=== PATIENT | female | born 1945 | race Caucasian/White ===

== ENCOUNTER → 2016-08-12 | Outpatient (CLI) | payer MEDICARE ==
[2016-08-12 11:18] LABS: CH 30.7; CHCM 33.4; HCT 41.6 % (34.0-46.0); HDW 2.73; HGB 13.6 gm/dL (11.4-16.0); MCH 30.2 pg (25.0-35.0); MCHC 32.7 g/dL (31.0-37.0); MCV 92.4 fL (80.0-100.0); RDW 12.9 % (11.5-15.5); WBC 3.2 k/uL (3.8-10.6)
[2016-08-12 11:30] LABS: ALT 35 U/L (9-52); AST 22 U/L (14-36); Alkaline Phosphatase 94 U/L (38-126); Anion Gap 11 mmol/L; Blood Urea Nitrogen 13 mg/dL (7-17); C Reactive Protein <5.0 mg/L (<10.0); Calcium 9.4 mg/dL (8.4-10.2); Carbon Dioxide 27 mmol/L (22-30); Chloride 107 mmol/L (98-107); Glucose 91 mg/dL (74-99); Non-African American GFR(MDRD) >60 (>60 ml/min/1.73 sqM); Potassium 4.2 mmol/L (3.5-5.1); Sodium 145 mmol/L (137-145); Total Bilirubin 0.5 mg/dL (0.2-1.3); Total Protein 6.9 g/dL (6.3-8.2)
--- NOTE | 2016-08-12 11:53 | US ---
EXAMINATION TYPE: US abdomen complete DATE OF EXAM: 08/12/2016 10:48 AM COMPARISON: Previous exam November CLINICAL HISTORY: Intermittent bloating, indigestion and constipation x 2 years, history of cholecyst ectomy, obese patient. EXAM MEASUREMENTS: Liver Length: 14.6cm Gallbladder Wall: surgically absent CBD: 0.7cm Spleen: 11.6cm Right Kidney: 9.7 x 4.8 x 5.0cm Left Kidney: 9.6 x 5.6 x 4.5cm Pancreas: obscured by bowel gas Liver: heterogeneous echotexture, exam is somewhat limited within the liver Gallbladder: surgically absent Evidence for sonographic Manuel's sign: no CBD: visualized portions wnl, limited by overlying bowel gas Spleen: visualized portions wnl, limited by rib shadowing and overlying bowel gas Right Kidney: 1.4 x 1.6 x 1.9cm cystic area lateral inferior pole is essentially stable, lower pole is somewhat obscured Left Kidney: visualized portions wnl, limited by rib shadowing Upper IVC: wnl Abd Aorta: visualized portions wnl, limited by overlying bowel gas The intrahepatic portion of the IVC and proximal abdominal aorta are within normal limits. Common bi le duct is unremarkable. The visualized portions of the pancreas are homogenous. The spleen is unre markable. Kidneys are symmetric and free of hydronephrosis. IMPRESSION: Simple cyst lower pole right kidney. Exam is somewhat limited. Normal Values: Liver Length: < 16cm wnl, 17-18cm upper limits, >18cm enlarged Spleen Length = < 13cm Renal Length = 9 - 12cm GB Wall: < 0.3cm CBD: < 0.6cm or < 1.0cm post cholecystectomy
[2016-08-12 12:57] LABS: Erythrocyte Sedimentation Rate 12 mm/hr (0-20)
== END | disposition home or self-care (01) ==
LOC: RADUSWWP 10:14
DX: N28.1 Cyst of kidney, acquired (principal)
CPT/HCPCS: 36415; 76700; 80053; 85027; 85652; 86140

== ENCOUNTER 2019-10-05 10:34 | Day surgery (SDC) | payer MEDICARE ==
[2019-10-04 09:48] VITALS: BMI 28.3
[~2019-10-05 10:34] MED LIST: LACTATED RINGERS 1,000 ML IV SCH; LIDOCAINE 1% (10MG/ML) FOR IV START INTRADERMA PRN
[2019-10-05 11:05] VITALS: TEMP 97.5
[2019-10-05] MEDS ORDERED: PROPOFOL 10 MG/ML 20 ML VIAL IV ONE (11:14)
--- NOTE | 2019-10-05 11:32 | P.PCN ---
Date of Procedure: 10/05/19 Procedure(s) Performed: BRIEF HISTORY: Patient is a 74-year-old pleasant female scheduled for an elective colonoscopy as a part of evaluation of change in bowel habits and family history of colon cancer. Her mother was diagnosed with colon cancer at age 84. PROCEDURE PERFORMED: Colonoscopy. PREOPERATIVE DIAGNOSIS: Change in bowel habits/family history of colon cancer IV sedation per Anesthesia. PROCEDURE: After informed consent was obtained, the patient, was brought into the endoscopy unit. IV sedation was administered by Anesthesia under continuous monitoring. Digital rectal examination was normal. Initially the Olympus CF-160 flexible video colonoscope was then inserted in the rectum, gradually advanced into the cecum without any difficulty. Careful examination was performed as the scope was gradually being withdrawn. Ileocecal valve and the appendiceal orifice were visualized and appeared normal. Prep was excellent. Mucosa of the cecum, ascending colon, transverse colon, descending colon, sigmoid colon, and rectum appeared normal. Scattered left sided diverticulosis. Retroflexion was performed in the rectum and no lesions were seen. The patient tolerated the procedure well. IMPRESSION: Normal-appearing colon from rectum to cecum with no evidence of colitis or colorectal neoplasia Scattered sigmoid diverticulosis. RECOMMENDATIONS: Findings of this examination were discussed with the patient as well as a family. She was advised to have a repeat screening colonoscopy every 5 years because of the family history of colon cancer.
[2019-10-05 12:04] VITALS: RESP 16
[2019-10-05 12:24] VITALS: BP 117/74; PULSE 88
== END 2019-10-05 12:25 | disposition home or self-care (01) ==
LOC: ORWHC2ENDO 10:34
PROVIDERS: ATTEND Internal Medicine Gastroenterology
DX: K57.30 Diverticulosis of large intestine without perforation or abscess without bleeding (principal); Z80.0 Family history of malignant neoplasm of digestive organs; K08.89 Other specified disorders of teeth and supporting structures; J45.909 Unspecified asthma, uncomplicated; E03.9 Hypothyroidism, unspecified; Z88.0 Allergy status to penicillin; Z88.2 Allergy status to sulfonamides; Z88.1 Allergy status to other antibiotic agents; Z79.899 Other long term (current) drug therapy; Z79.890 Hormone replacement therapy; Z88.5 Allergy status to narcotic agent; Z90.49 Acquired absence of other specified parts of digestive tract; Z98.51 Tubal ligation status; Z90.89 Acquired absence of other organs
CPT/HCPCS: 45378; J2704

== ENCOUNTER → 2020-12-18 | Outpatient (CLI) | payer MEDICARE ==
--- NOTE | 2020-12-18 09:13 | US ---
EXAMINATION TYPE: US abdomen complete DATE OF EXAM: 12/18/2020 COMPARISON: 09/25/2019 CLINICAL HISTORY: R10.11 RUQ Pain. GB removed. EXAM MEASUREMENTS: Liver Length: 15.4 cm CBD: 0.7 cm this is within normal limits for postcholecystectomy patient. Spleen: 11.0 cm Right Kidney: 9.4 x 4.6 x 4.4 cm Left Kidney: 10.0 x 4.2 x 5.1 cm Pancreas: The tail of the pancreas is obscured by overlying bowel gas. Liver: wnl Gallbladder: Surgically absent CBD: wnl Spleen: wnl Right Kidney: Cystic structures are seen 1: Lateral= 1.5 x 2.1 x 1.1 cm 2: Upper= 1.5 x 1.3 x 1.3 cm no hydronephrosis or shadowing renal calculi. Left Kidney: No hydronephrosis or shadowing renal calculi seen Upper IVC: wnl Abd Aorta: No AAA visualized The liver is homogenous. The intrahepatic portion of the IVC and proximal abdominal aorta are within normal limits. IMPRESSION: 1. Cholecystectomy. The common duct measures 7 mm, within normal limits for a cholecystectomy patient . 2. The tail of the pancreas is not visualized due to overlying bowel gas. 3. Cystic structures in the right kidney may represent mildly complex cysts.
== END | disposition home or self-care (01) ==
LOC: RADUSWWP 07:28
PROVIDERS: ATTEND Family Medicine
DX: N28.1 Cyst of kidney, acquired (principal); Z90.49 Acquired absence of other specified parts of digestive tract
CPT/HCPCS: 76700

== ENCOUNTER → 2022-05-26 | Outpatient (CLI) | payer MEDICARE ==
--- NOTE | 2022-05-26 14:47 | US ---
EXAMINATION TYPE: US abdomen complete DATE OF EXAM: 05/26/2022 COMPARISON: US 12/18/2020. CLINICAL HISTORY: R10.9 ABD PAIN. Abdominal pain. Hx cholecystectomy in 2003. Pain. TECHNIQUE: Multiple sonographic images of the abdomen are obtained. FINDINGS: EXAM MEASUREMENTS: Liver Length: 14.2 cm CBD: 0.63 cm Spleen: 10.7 cm Right Kidney: 10.4 x 5.6 x 5.2 cm Left Kidney: 10.7 x 4.7 x 4.7 cm JOCKEY AGENT NOTES: Limited due to overlying bowel gas. Pancreas: Limited visibility. Liver: Appears coarse in echotexture with increased echogenicity. Hyperechoic, indistinct area seen within the right lobe: 1.0 x 0.8 x 0.6 cm. Gallbladder: Surgically absent. CBD: Appears wnl post-cholecystectomy. Spleen: Appears wnl Right Kidney: Two stable cysts seen. Upper pole: 2.1 x 2.4 x 2.0 cm. Lower pole: 1.8 x 1.4 x 1.9 cm. No shadowing calculi or solid mass. No hydronephrosis. Left Kidney: No hydronephrosis or masses seen . No shadowing calculi. Upper IVC: Appears wnl Abd Aorta: Appears wnl IMPRESSION: 1. No acute process. 2. Right hepatic lobe 1 cm hyperechoic lesion which may represent benign hemangioma. Further evaluat ion with CT or MR abdomen (liver mass protocol) is recommended. 3. Hepatic steatosis. 4. Right renal cysts.
== END | disposition home or self-care (01) ==
LOC: RADUSWWP 13:23
PROVIDERS: ATTEND Family Medicine
DX: R10.9 Unspecified abdominal pain (principal); K76.0 Fatty (change of) liver, not elsewhere classified; N28.1 Cyst of kidney, acquired
CPT/HCPCS: 76700

== ENCOUNTER → 2022-06-10 | Outpatient (CLI) | payer MEDICARE ==
--- NOTE | 2022-06-10 16:17 | CT ---
EXAMINATION TYPE: CT abdomen wo/w con DATE OF EXAM: 06/10/2022 COMPARISON: None HISTORY: LIVER DISEASE/LESION. LIVER MASS PROTOCOL CT DLP: 1666.70 mGycm CONTRAST: CT scan of the abdomen and pelvis is performed with Oral Contrast and without and with IV Contrast, p atient injected with 70 mL of Isovue 300. FINDINGS: LUNG BASES-: No visible nodule. No infiltrate. LIVER/GB: No obvious space-occupying lesions seen. There are couple of scattered calcifications withi n the liver. The gallbladder is surgically absent. Biliary tree is of normal caliber. PANCREAS: No inflammation. No distinct mass. SPLEEN: No splenic enlargement. No lesion seen. ADRENALS: No nodule. No thickening. KIDNEYS/BLADDER: No hydronephrosis. No nephrolithiasis. Renal cystic changes noted. Urinary bladder grossly unremarkable. BOWEL: Normal appendix. Normal bowel caliber. No inflammation. GENITAL ORGANS: No gross abnormality. LYMPH NODES: No greater than 1cm abdominal or pelvic lymph nodes are appreciated. AORTA: No significant abnormality. OSSEOUS STRUCTURES: No significant abnormality is seen. OTHER: No significant additional abnormality is seen. IMPRESSION: 1. No hepatic lesion identified at this time. Scattered hepatic calcifications are noted.
== END | disposition home or self-care (01) ==
LOC: RADCTMAIN 13:01
PROVIDERS: ATTEND Family Medicine
DX: K76.9 Liver disease, unspecified (principal)
CPT/HCPCS: 82565; 84520; 74170; 36415; Q9967

== ENCOUNTER → 2022-07-14 | Outpatient (CLI) | payer MEDICARE ==
--- NOTE | 2022-07-14 19:00 | CT ---
EXAMINATION TYPE: CT brain wo/w con DATE OF EXAM: 07/14/2022 COMPARISON: None. HISTORY: headaches CT DLP: 2163.2 mGycm Automated exposure control for dose reduction was used. CONTRAST: CT scan of the head is performed without and with IV Contrast, patient injected with 100 mL of Isovue 300. FINDINGS: Noncontrast images show no acute intracranial hemorrhage or midline shift. The ventricles and sulci are within normal limits in size. Braun-white matter differentiation is maintained. Postcont rast images show no suspicious enhancing intraparenchymal mass. The globes are intact and the visuali zed sinuses are clear. IMPRESSION: Source of patient's headaches is not identified.
== END | disposition home or self-care (01) ==
LOC: RADCTMAIN 17:19
PROVIDERS: ATTEND Family Medicine
DX: R51.9 Headache, unspecified (principal)
CPT/HCPCS: 82565; 84520; 70470; 36415; Q9967

== ENCOUNTER → 2024-10-16 | Outpatient (CLI) | payer MEDICARE ==
--- NOTE | 2024-10-16 10:49 | US ---
EXAMINATION TYPE: US abdomen complete DATE OF EXAM: 10/16/2024 COMPARISON: CT 06/10/2022 CLINICAL INDICATION: Female, 79 years old with history of R14.0 ABDOMINAL DISTENSION (GASEOUS); Gaseo us abdominal distention TECHNIQUE: Grayscale and color Doppler imaging of the abdomen was performed. FINDINGS: EXAM MEASUREMENTS: Liver Length: 12.2 cm Gallbladder Wall: Surgically absent CBD: 0.4 cm, color Doppler imaging was utilized to isolate the common bile duct for measurement. Spleen: 11.6 cm Right Kidney: 10.8 x 4.9 x 5.1 cm Left Kidney: 10.2 x 5.0 x 4.7 cm PICCOLOIST NOTES: Pancreas: Tail obscured by overlying bowel gas Liver: Scattered calcifications noted Gallbladder: Surgically absent Evidence for sonographic Manuel's sign: No CBD: wnl Spleen: wnl Right Kidney: Several cystic areas, inferior pole measures 1.9 x 2.4 x 2.0 cm, superior pole measure s 2.2 x 2.2 x 2.1 cm Left Kidney: wnl, No hydronephrosis, calculi or masses seen Upper IVC: wnl Abd Aorta: wnl Exam limited by body habitus and bowel gas. The liver is homogenous. The intrahepatic portion of the IVC and proximal abdominal aorta are within normal limits. Common bile duct is unremarkable. The visualized portions of the pancreas are homog enous. The spleen is unremarkable. Kidneys are symmetric and free of hydronephrosis. No solid bc l lesions are seen. IMPRESSION: Postcholecystectomy changes. Right renal cysts. [facility], , 10/16/2024 10:47 AM
== END | disposition home or self-care (01) ==
LOC: RADUSWWP 09:33
PROVIDERS: ATTEND Family Medicine
DX: N28.1 Cyst of kidney, acquired (principal); R14.0 Abdominal distension (gaseous); Z90.49 Acquired absence of other specified parts of digestive tract
CPT/HCPCS: 76700

== ENCOUNTER 2024-10-27 06:33 | Day surgery (SDC) | payer MEDICARE ==
[2024-10-27] MEDS: IV FLUID CONTINUATION 500 ML IV ONE ×2 (06:50→07:21)
[2024-10-27] MEDS ORDERED: LACTATED RINGERS 1,000 ML IV SCH (06:54)
[2024-10-27 07:03] VITALS: TEMP 97.7
[2024-10-27] MEDS ORDERED: PROPOFOL 10 MG/ML 20 ML VIAL IV ONE (07:24)
[2024-10-27] MEDS ORDERED: LIDOCAINE 2% (PF) 20 MG/ML 5 ML VIAL ONE (07:24)
--- NOTE | 2024-10-27 07:44 | P.PCN ---
Date of Procedure: 10/27/24 Procedure(s) Performed: Brief history: Patient is a pleasant 79-year-old white female scheduled for an elective upper endoscopy as well as colonoscopy as a part of evaluation of epigastric pain, positive serology for celiac disease and screening for colon cancer. Her mother was diagnosed with colon cancer at age 75. Procedure performed: Esophagogastroduodenoscopy with biopsy Colonoscopy Preoperative diagnosis: Epigastric pain and positive serology for celiac disease Screen for colon cancer and family history of colon cancer Anesthesia: MAC Procedure: After informed consent was obtained from the patient was brought into the endoscopy unit and IV sedation was administered by anesthesia under continuous monitoring. Initially upper endoscopy was done. The Olympus GF 160 video endoscope was inserted inserted into the mouth and esophagus intubated without any difficulty and was gradually advanced into the stomach and duodenum and carefully examined. The bulb and second part of the duodenum appeared normal. The scope was then withdrawn into the stomach adequately insufflated with air and upon careful examination the antrum had mild gastritis and biopsies were done from this area. Mucosa of the d body, cardia and fundus appeared normal. The scope was then withdrawn into the esophagus. The GE junction was located at 40 cm to the incisors. Small hiatal hernia noted. It appeared regular with no erythema erosions or ulcerations. Rest of the esophagus appeared normal. Patient tolerated the procedure well. At this time the patient continued to remain sedation. Initial digital rectal examination was normal. Olympus CF 160 video colonoscope was then inserted into the rectum and gradually advanced to the cecum without any difficulty. Careful examination was performed as the scope was gradually being withdrawn. The prep was excellent. The cecum, ascending colon, transverse colon, descending colon, sigmoid colon and rectum appeared normal. Scattered sigmoid diverticulosis. Retroflexion was performed in the rectum and no lesions were noted. Patient tolerated the procedure well. Impression: 1. Upper endoscopy revealed mild gastritis and small hiatal hernia 2. Colonoscopy revealed scattered sigmoid diverticulosis but no evidence of colitis or colorectal neoplasia Recommendations: Findings of this examination were discussed with the patient as well as as well as her family. She was advised to follow-up with the biopsy results. She will be seen in the office in 2 weeks. Recommended repeat screening colonoscopy in 5 years based on her overall medical condition.
[2024-10-27 08:59] VITALS: BP 153/72; PULSE 46; RESP 16
== END 2024-10-27 08:58 | disposition home or self-care (01) ==
LOC: ORWHC2ENDO 06:33
PROVIDERS: ATTEND Internal Medicine Gastroenterology
DX: Z12.11 Encounter for screening for malignant neoplasm of colon (principal); K29.50 Unspecified chronic gastritis without bleeding; K57.30 Diverticulosis of large intestine without perforation or abscess without bleeding; K44.9 Diaphragmatic hernia without obstruction or gangrene; E07.9 Disorder of thyroid, unspecified; E78.5 Hyperlipidemia, unspecified; J45.909 Unspecified asthma, uncomplicated; Z90.89 Acquired absence of other organs; Z80.0 Family history of malignant neoplasm of digestive organs; Z88.0 Allergy status to penicillin; Z88.2 Allergy status to sulfonamides; Z88.6 Allergy status to analgesic agent; Z88.5 Allergy status to narcotic agent; Z88.1 Allergy status to other antibiotic agents; Z79.890 Hormone replacement therapy; Z79.899 Other long term (current) drug therapy
CPT/HCPCS: 43239; J2704; J2003; G0105; 88305

== ENCOUNTER → 2024-11-28 | Outpatient (CLI) | payer MEDICARE ==
--- NOTE | 2024-11-29 06:53 | USB ---
Reason for Exam: Clinical finding. Risk Values: Joan 5 year model risk: 1.1%. NCI Lifetime model risk: 2.0%. Technique: Method: Targeted. Findings: The upper inner quadrant of the right breast, the area of palpable concern of the right breast, the axilla of the right breast and the retroareolar of the right breast were scanned. Targeted ultrasound was performed. At 12:00 position 6 cm distance from nipple there is a 9 x 9 x 12 mm circumscribed hypoechoic mass without posterior features having peripheral vascularity corresponding to palpable abnormality. At 3:00 position 6 cm distance from nipple there is a 6 x 3 x 4 mm oval hyperechoic area favor benign. Right axillary region shows benign appearing subcentimeter lymph node. Overall Assessment: Suspicious, BI-RAD 4 Management: Ultrasound Core Biopsy of the right breast. Diagnostic Mammogram of both breasts. Tissue sampling and bilateral diagnostic mammogram is advised. A clinical breast exam by your physician is recommended on an annual basis and results should be correlated with mammographic findings. This exam should not preclude additional follow-up of suspicious palpable abnormalities. Results were given to the patient verbally at the time of exam. [facility], , 11/29/2024 6:43 AM. Electronically signed and approved by: Clyde Bingham M.D.
== END | disposition home or self-care (01) ==
LOC: RADUSWWP 15:25
PROVIDERS: ATTEND Family Medicine
DX: N63.12 Unspecified lump in the right breast, upper inner quadrant (principal)

== ENCOUNTER → 2025-01-04 | Outpatient (CLI) | payer MEDICARE ==
[2025-01-04 11:58] VITALS: BP 168/79; PULSE 89; RESP 17; TEMP 98.6
--- NOTE | 2025-01-04 12:21 | P.GSCN ---
History of Present Illness Consult date: 01/04/25 Reason for Consult: invasive ductal cancer right breast; [id number] Requesting physician: Ann-Marie Ku History of present illness: Paty is a 79 year old female seen in consultation for Dr. Ku regarding a biopsy proven right breast invasive ductal cancer. She had an ultrasound core biopsy on , lesion about 1 cm by 1 cm. Clip was in the correct location. She has not had a bilateral mammogram. She felt a nodule in her right breast for several months and agreed to have an ultrasound of that side but did not want to have a mammogram. The ultrasound led to an ultrasound- guided core biopsy on the right breast and subsequently a diagnostic mammogram for clip placement was performed on the right side. She has not yet had a left breast mammogram. She has not had any mammograms prior to this for at least 10 years. She has never had any surgery on her breast. She is not complaining of any nipple discharge or skin changes. She has not had any recent trauma or infection in her breast. Caffeine: 2 cups in am nicotine: none now used to smoke 1 PPD until ; smoked for 15 years chocolate: occasional BCP: in remote past about 1 year hormones: none Family History: Maternal grandmother: Breast cancer Maternal aunt: Breast cancer mother: colon cancer 2 cousins: breast cancer Hormonal history: Menarche:17 , breast fed; yes, age at first : 21 menopause: early 40's Surgical history: tubal ligation gallbladder Medical History; asthma tooth infection Social History: nicotine: none alcohol: occasional; used to drink in the past at the time of a divorce drugs: none Review of Systems - Constitutional Denies fever, Denies weight loss - EENT EENT Comment(s): right jaw swollen/ tooth infection Eyes: denies blurred vision Ears: deny: decreased hearing, tinnitus Ears, nose, mouth and throat: Reports as per HPI - Breasts bilateral: as per HPI - Cardiovascular Denies chest pain, Denies shortness of breath - Respiratory Respiratory Comment(s): asthma occasional - Gastrointestinal Gastrointestinal Comment(s): IBS Reports as per HPI - Genitourinary Genitourinary: Denies dysuria, Denies hematuria Menstruation: Reports postmenopausal - Musculoskeletal Musculoskeleta Comment(s): knee and ankle pain Reports as per HPI - Integumentary Denies rash, Denies unusual bruising - Neurological Neurologic Comment(s): neuropathy in feet MRI brain changes/ told age related Reports headaches, Denies syncope - Psychiatric Reports as per HPI - Endocrine Reports as per HPI, Reports fatigue - Allergic/Immunologic Reports as per HPI Past Medical History Past Medical History: Asthma, Eye Disorder, Thyroid Disorder Additional Past Medical History / Comment(s): glaucoma. digestive issues History of Any Multi-Drug Resistant Organisms: None Reported Past Surgical History: Appendectomy, Cholecystectomy, Tonsillectomy Past Anesthesia/Blood Transfusion Reactions: Motion Sickness Past Psychological History: Anxiety Smoking Status: Former smoker Past Alcohol Use History: Occasional Additional Past Alcohol Use History / Comment(s): smoked for 25 years 1 ppd quit 1994 Past Drug Use History: None Reported Additional Drug Use History / Comment(s): cbd oil - Past Family History Mother Family Medical History: Cancer Additional Family Medical History / Comment(s): colon cancer Medications and Allergies Home Medications Medication Instructions Recorded Confirmed Type Albuterol Inhaler [Ventolin Hfa 1 - 2 puff INHALATION RT-Q6H PRN 10/04/19 01/04/25 History Inhaler] Cholecalciferol [Vitamin D3 (25 10,000 unit PO HS 10/04/19 01/04/25 History Mcg = 1000 Iu)] Latanoprost/Pf [Latanoprost 0.005% 1 drop BOTH EYES HS 10/04/19 01/04/25 History Eye Drop] Levothyroxine Sodium [Synthroid] 125 mcg PO DAILY 10/04/19 01/04/25 History Multivitamins, Thera [Multivitamin 1 tab PO DAILY 10/04/19 01/04/25 History (formulary)] Timolol 0.5% Ophth Soln [Timoptic 1 drop BOTH EYES DAILY 10/26/24 01/04/25 History 0.5% Ophth Soln] Allergies Allergy/AdvReac Type Severity Reaction Status Date / Time acetaminophen [From Tylenol] Allergy Nausea & Unverified 01/04/25 11:52 Vomiting meperidine [From Demerol] Allergy Nausea & Unverified 01/04/25 11:52 Vomiting Penicillins Allergy Unknown Verified 01/04/25 11:52 codeine AdvReac Nausea & Verified 01/04/25 11:52 [From Tylenol-Codeine #3] Vomiting Surgical - Exam Vital Signs Temp Pulse Resp BP Pulse Ox 98.6 F 89 17 168/79 98 01/04/25 11:52 01/04/25 11:52 01/04/25 11:52 01/04/25 11:52 01/04/25 11:52 - General moderate distress - ENT no hearing loss - Neck trachea midline - Respiratory normal respiratory effort, clear to auscultation - Cardiovascular Rhythm: regular Heart Sounds: normal: S1, S2 - Integumentary normal turgor - Neurologic no disoriented, no combative - Musculoskeletal normal gait - Psychiatric oriented to time, oriented to person, oriented to place, speech is normal, memory intact Breast Exam: BRA: 42DD Inspection: Bilateral grade 3 ptosis Palpation: Right breast: Multi positional exam fibrocystic changes, at the 12 o'clock position there is a well-healed scar from recent core biopsy, lesion approximately 1 cm in size is palpable Right axilla: No adenopathy of concern Left breast: Multi positional exam fibrocystic changes, no dominant masses or nodules of concern Left axilla: No adenopathy of concern Results Right breast mammogram and ultrasound personally reviewed, patient has not had a left breast mammogram yet Assessment and Plan Assessment: Impression: Right breast invasive ductal carcinoma Recent history of headaches following with neurology Occasional asthma IBD Plan: Presentation of case at tumor board Left breast mammogram Probable right breast lumpectomy/possible oncoplastic tissue transfer CC: Dr. Radha Pineda
== END ==
LOC: WWCWWP 11:31
PROVIDERS: ATTEND Surgery
DX: D05.11 Intraductal carcinoma in situ of right breast (principal); J45.909 Unspecified asthma, uncomplicated; K58.9 Irritable bowel syndrome, unspecified; Z86.69 Personal history of other diseases of the nervous system and sense organs; Z90.49 Acquired absence of other specified parts of digestive tract; Z88.0 Allergy status to penicillin; Z88.5 Allergy status to narcotic agent; Z88.6 Allergy status to analgesic agent; Z87.891 Personal history of nicotine dependence

== ENCOUNTER 2025-01-05 19:52 | Emergency (ER) | payer MEDICARE ==
[2025-01-05 20:05] VITALS: RESP 18
--- NOTE | 2025-01-05 21:19 | ED ---
Allergic Reaction HPI - General Chief complaint: Allergic Reaction Stated complaint: shortness of breath, headache Time Seen by Provider: 01/05/25 21:15 Source: patient, RN notes reviewed Mode of arrival: ambulatory Limitations: no limitations - History of Present Illness Initial Comments: 79-year-old female presenting for headache x 11 hours with associated shortness of breath. States she believes this is due to a medication reaction from Augmentin she was given for a tooth infection 2 days ago. Describes a 10 out of 10, splitting headache in the posterior head that radiates to her neck. Denies chest pain, fever, cough, nasal congestion, vision changes, head trauma. Denies blood thinners. Also reports she started a medication for Lyme's disease 5 days ago. - Related Data Home Medications Medication Instructions Recorded Confirmed Albuterol Inhaler [Ventolin Hfa 1 - 2 puff INHALATION RT-Q6H PRN 10/04/19 01/04/25 Inhaler] Cholecalciferol [Vitamin D3 (25 10,000 unit PO HS 10/04/19 01/04/25 Mcg = 1000 Iu)] Latanoprost/Pf [Latanoprost 0.005% 1 drop BOTH EYES HS 10/04/19 01/04/25 Eye Drop] Levothyroxine Sodium [Synthroid] 125 mcg PO DAILY 10/04/19 01/04/25 Multivitamins, Thera [Multivitamin 1 tab PO DAILY 10/04/19 01/04/25 (formulary)] Timolol 0.5% Ophth Soln [Timoptic 1 drop BOTH EYES DAILY 10/26/24 01/04/25 0.5% Ophth Soln] Allergies Allergy/AdvReac Type Severity Reaction Status Date / Time acetaminophen [From Tylenol] Allergy Nausea & Verified 01/05/25 20:05 Vomiting meperidine [From Demerol] Allergy Nausea & Verified 01/05/25 20:05 Vomiting Penicillins Allergy Unknown Verified 01/05/25 20:05 codeine AdvReac Nausea & Verified 01/05/25 20:05 [From Tylenol-Codeine #3] Vomiting Review of Systems ROS Statement: Those systems with pertinent positive or pertinent negative responses have been documented in the HPI. ROS Other: All systems not noted in ROS Statement are negative. Past Medical History Past Medical History: Asthma, Eye Disorder, Thyroid Disorder Additional Past Medical History / Comment(s): glaucoma. digestive issues History of Any Multi-Drug Resistant Organisms: None Reported Past Surgical History: Appendectomy, Cholecystectomy, Tonsillectomy Past Anesthesia/Blood Transfusion Reactions: Motion Sickness Past Psychological History: Anxiety Smoking Status: Former smoker Past Alcohol Use History: Occasional Past Drug Use History: None Reported - Past Family History Mother Family Medical History: Cancer Additional Family Medical History / Comment(s): colon cancer General Exam Limitations: no limitations General appearance: alert, in no apparent distress Head exam: Present: atraumatic, normocephalic, normal inspection Eye exam: Present: normal appearance, PERRL, EOMI. Absent: scleral icterus, conjunctival injection, periorbital swelling ENT exam: Present: normal exam, mucous membranes moist Neck exam: Present: normal inspection. Absent: tenderness, meningismus, lymphadenopathy Respiratory exam: Present: normal lung sounds bilaterally. Absent: respiratory distress, wheezes, rales, rhonchi, stridor Cardiovascular Exam: Present: normal rhythm, tachycardia, normal heart sounds. Absent: systolic murmur, diastolic murmur, rubs, gallop, clicks Neurological exam: Present: alert, oriented X3, CN II-XII intact Psychiatric exam: Present: normal affect, anxious Skin exam: Present: warm, dry, intact, normal color. Absent: rash Course Vital Signs 01/05/25 01/05/25 20:03 23:41 Temperature 97.5 F L 97.7 F Pulse Rate 106 H 67 Respiratory 18 18 Rate Blood Pressure 153/91 136/76 O2 Sat by Pulse 94 L 97 Oximetry Medical Decision Making - Medical Decision Making Was pt. sent in by a medical professional or institution (, PA, [employer], urgent care, hospital, or assisted...) When possible be specific @ -No Did you speak to anyone other than the patient for history (EMS, parent, family, police, friend...)? What history was obtained from this source @-Son supplemented history Did you review nursing and triage notes (agree or disagree)? Why? @ -I reviewed and agree with nursing and triage notes Were old charts reviewed (outside hosp., previous admission, EMS record, old EKG, old radiological studies, urgent care reports/EKG's, assisted records)? Report findings @ -No old charts were reviewed Differential Diagnosis (chest pain, altered mental status, abdominal pain women, abdominal pain men, vaginal bleeding, weakness, fever, dyspnea, syncope, headache, dizziness, GI bleed, back pain, seizure, CVA, palpatations, mental health, musculoskeletal)? @ -Differential Headache: Migraine, tension, cluster, carbon monoxide, central venous thrombosis, pension karma temporal arteritis, acute closure glaucoma, intercranial hemorrhage, mastoiditis, sinusitis, head injury, this is not meant to be an all-inclusive list. EKG interpreted by me (3pts min.). @ -As above X-rays interpreted by me (1pt min.). @ -Chest x-ray reveals no acute process CT interpreted by me (1pt min.). @ -CT brain reveals no acute intracranial abnormality U/S interpreted by me (1pt. min.). @ -None done What testing was considered but not performed or refused? (CT, X-rays, U/S, lab s)? Why? @ -None What meds were considered but not given or refused? Why? @ -None Did you discuss the management of the patient with other professionals (professionals i.e. , PA, [employer], lab, RT, psych nurse, social media content manager, resistor tester, teacher, human resource officer, supportive employment case manager)? Give summary @ -No Was smoking cessation discussed for >3mins.? @ -No Was critical care preformed (if so, how long)? @ -No Were there social determinants of health that impacted care today? How? (Homelessness, low income, unemployed, alcoholism, drug addiction, transportation, low edu. Level, literacy, decrease access to med. care, intermediate, rehab)? @ -No Was there de-escalation of care discussed even if they declined (Discuss DNR or withdrawal of care, Hospice)? DNR status @ -No What co-morbidities impacted this encounter? (DM, HTN, Smoking, COPD, CAD, Cancer, CVA, ARF, Chemo, Hep., AIDS, mental health diagnosis, sleep apnea, morbid obesity)? @ -None Was patient admitted / discharged? Hospital course, mention meds given and route, prescriptions, significant lab abnormalities, going to OR and other pertinent info. @ - discharge. 79-year-old female presenting for headache x 1 day with associated shortness of breath. Believes this is an allergic reaction to Augmentin she took at 10 AM this morning for tooth infection. Patient appears anxious and is tachycardic at 106 bpm. Satting 94% on room air. Provided with IV fluids, Benadryl, and Decadron. EKG reveals sinus tachycardia with no acute ST changes. Lab work largely unremarkable. CT brain reveals no acute intracranial abnormality. Chest x-ray reveals no acute process. Upon reevaluation, patient is requesting more pain medications. Patient was provided with dose of morphine and Toradol. Upon reevaluation, patient reports significant improvement of symptoms. Patient can be safely discharged home with close outpatient follow-up and strict return precautions. Case was discussed with my ED attending Dr. Mendoza. Undiagnosed new problem with uncertain prognosis? @ -No Drug Therapy requiring intensive monitoring for toxicity (Heparin, Nitro, Insul in, Cardizem)? @ -No Were any procedures done? @ -No Diagnosis/symptom? @ -Headache, allergic reaction Acute, or Chronic, or Acute on Chronic? @ -Acute Uncomplicated (without systemic symptoms) or Complicated (systemic symptoms)? @ -Complicated Side effects of treatment? @ -No Exacerbation, Progression, or Severe Exacerbation? @ -No Poses a threat to life or bodily function? How? (Chest pain, USA, SD, pneumonia, PE, COPD, DKA, ARF, appy, cholecystitis, CVA, Diverticulitis, Homicidal, Suicidal, threat to staff... and all critical care pts) @ -Not at this time - Lab Data Result diagrams: 01/05/25 21:24 01/05/25 21:24 Lab Results 01/05/25 01/05/25 01/05/25 Range/Units 21:24 21:24 21:24 WBC 7.34 (4.50-10.00) 10*3/uL RBC 4.76 (4.10-5.20) 10*6/uL Hgb 14.7 (12.0-15.0) g/dL Hct 41.9 (37.2-46.3) % MCV 88.0 (80.0-97.0) fL MCH 30.9 (27.0-32.0) pg MCHC 35.1 (32.0-37.0) g/dL Plt Count 237 (140-440) 10*3/uL MPV 10.1 (9.5-12.2) fL Immature Gran % (Auto) 0.1 % Neutrophils % 78.2 % Lymphocytes % 15.4 % Monocytes % 5.9 % Eosinophils % 0.1 % Basophils % 0.3 % Immature Gran # 0.01 (0.00-0.04) 10*3/uL Neutrophils # 5.74 (1.80-7.70) 10*3/uL Lymphocytes # 1.13 (0.90-5.00) 10*3/uL Monocytes # 0.43 (0.20-1.00) 10*3/uL Eosinophils # 0.01 L (0.04-0.35) 10*3/uL Basophils # 0.02 (0.00-0.10) 10*3/uL Sodium 136 L (137-145) mmol/L Potassium 5.4 H (3.5-5.1) mmol/L Chloride 100 (98-107) mmol/L Carbon Dioxide 20 L (22-30) mmol/L Anion Gap 16 mmol/L BUN 14 (7-17) mg/dL Creatinine 0.72 (0.52-1.04) mg/dL Est GFR (CKD-EPI)AfAm >90 (>60 ml/min/1.73 sqM) Est GFR (CKD-EPI)NonAf 81 (>60 ml/min/1.73 sqM) Glucose 120 H (74-99) mg/dL Calcium 10.3 H (8.4-10.2) mg/dL Total Bilirubin 1.1 (0.2-1.3) mg/dL AST 54 H (14-36) U/L ALT 32 (4-34) U/L Alkaline Phosphatase 120 (38-126) U/L Troponin I <0.012 (0.000-0.034) ng/mL Total Protein 8.3 H (6.3-8.2) g/dL Albumin 5.0 (3.5-5.0) g/dL - EKG Data -: EKG Interpreted by Me EKG Comments: EKG reveals sinus tachycardia with no acute ST changes. Ventricular rate 100 bpm, VA interval 150, QRS duration 70, QT/QTc 357/414 Disposition Clinical Impression: Allergic reaction, Headache Disposition: HOME SELF-CARE Condition: Stable Instructions (If sedation given, give patient instructions): Tension Headache (ED) Additional Instructions: Follow-up with your PCP as discussed. Please return to the Emergency Department if symptoms worsen or any other concerns. Is patient prescribed a controlled substance at d/c from ED?: No Referrals: Ann-Marie Ku MD [Primary Care Provider] - 1-2 days Time of Disposition: 23:02
[2025-01-05] MEDS: SODIUM CHLORIDE 0.9% 1,000 ML IV STA (21:33)
[2025-01-05] MEDS: DEXAMETHASONE SOD PHOSPHATE 10 MG/ML 1 ML VIAL IVP STA (21:34)
[2025-01-05] MEDS: diphenhydrAMINE 50 MG/ML 1 ML VIAL IVP STA (21:34)
[2025-01-05 21:47] LABS: Basophils # (A) 0.02 10*3/uL (0.00-0.10); Basophils % (A) 0.3 %; Eosinophils # (A) 0.01 10*3/uL (0.04-0.35); Eosinophils % (A) 0.1 %; HCT 41.9 % (37.2-46.3); HGB 14.7 g/dL (12.0-15.0); Lymphocytes # (A) 1.13 10*3/uL (0.90-5.00); Lymphocytes % (A) 15.4 %; MCH 30.9 pg (27.0-32.0); MCHC 35.1 g/dL (32.0-37.0); Mean Platelet Volume 10.1 fL (9.5-12.2); Monocytes # (A) 0.43 10*3/uL (0.20-1.00); Monocytes % (A) 5.9 %; Neutrophils # (A) 5.74 10*3/uL (1.80-7.70); Neutrophils % (A) 78.2 %; Platelet Count 237 10*3/uL (140-440); RBC 4.76 10*6/uL (4.10-5.20); RDW 11.9 % (11.5-14.5); WBC 7.34 10*3/uL (4.50-10.00)
[2025-01-05 22:09] LABS: ALT 32 U/L (4-34); African American GFR (CKD) >90 (>60 ml/min/1.73 sqM); Anion Gap 16 mmol/L; Blood Urea Nitrogen 14 mg/dL (7-17); Calcium 10.3 mg/dL (8.4-10.2); Carbon Dioxide 20 mmol/L (22-30); Chloride 100 mmol/L (98-107); Glucose 120 mg/dL (74-99); Non-African American GFR(CKD) 81 (>60 ml/min/1.73 sqM); Sodium 136 mmol/L (137-145)
[2025-01-05 22:24] LABS: AST 54 U/L (14-36); Alkaline Phosphatase 120 U/L (38-126); Potassium 5.4 mmol/L (3.5-5.1); Total Bilirubin 1.1 mg/dL (0.2-1.3); Total Protein 8.3 g/dL (6.3-8.2)
--- NOTE | 2025-01-05 22:30 | CT ---
EXAMINATION TYPE: CT brain wo con DATE OF EXAM: 01/05/2025 9:55 PM COMPARISON: None. CLINICAL INDICATION: Female, 79 years old with history of severe headache x 1 day, SEVERE HEADACHE X 1 DAY FOLLOWING ALLERGIC RXN TECHNIQUE: CT of the brain is performed utilizing 3 mm thick sections through the posterior fossa and 3 mm thick sections through the remaining calvarium. Study is performed within 24 hours of arrival to the hospital. Contrast used: mL of , (none if empty) CT DLP: 1097.4 mGycm, Automated exposure control for dose reduction was used. FINDINGS: No abnormal hyperdensity is present to suggest an acute intracranial hemorrhage. No mass lesion is evident. Some minimal calcification is within the left caudate head, present previo usly. No acute infarcts are evident. Ventricles and sulci are appropriate for the patient age. Paranasal sinuses and mastoid air cells within the [id number] are clear. IMPRESSION: 1. No acute intracranial process. Follow up MRI can be performed as clinically indicated. [facility], , 01/05/2025 10:28 PM
--- NOTE | 2025-01-05 22:31 | XR ---
EXAMINATION TYPE: XR chest 2V DATE OF EXAM: 01/05/2025 9:57 PM COMPARISON: None. CLINICAL INDICATION: Female, 79 years old with history of shortness of breath, TECHNIQUE: XR chest 2V view(s) obtained. FINDINGS: The heart size is normal. The pulmonary vasculature is normal. The lungs are clear. IMPRESSION: 1. No acute pulmonary process. [facility], , 01/05/2025 10:29 PM
[2025-01-05] MEDS: MORPHINE SULFATE 4 MG/ML SYRINGE IVP STA (22:38)
[2025-01-05] MEDS: KETOROLAC 15 MG/ML 1 ML VIAL IVP STA (23:09)
[2025-01-05 23:42] VITALS: BP 136/76; PULSE 67; TEMP 97.7
== END 2025-01-05 23:42 | disposition home or self-care (01) ==
LOC: EC 19:52
DX: R51.9 Headache, unspecified (principal); T50.905A Adverse effect of unspecified drugs, medicaments and biological substances, initial encounter; Z87.891 Personal history of nicotine dependence; Z88.0 Allergy status to penicillin; Z88.5 Allergy status to narcotic agent
CPT/HCPCS: 36415; 93005; 80053; 84484; 85025; 71046; 70450; 99284; 96374; 96375 ×3; 96361; J2270; J1200; J1100; J1885

== ENCOUNTER → 2025-02-20 | Outpatient (CLI) | payer MEDICARE ==
[2025-02-20 08:17] VITALS: BP 135/74; PULSE 63; RESP 17; TEMP 98
--- NOTE | 2025-02-20 08:23 | P.PN ---
Subjective Progress Note Date: 02/20/25 Principal diagnosis: right breast invasive ductal cancer Case presented at tumor board on 01 09 25. She is going to have a left breast mammogram, there is agreement with right breast needle localization lumpectomy. I have called and left a message for the patient. She has an appointment for a preoperative evaluation and surgery is scheduled for February 27. Addendum entered and electronically signed by Diane Ross MD 01/04/25 12:45: Plan: 1. Left breast mammogram 2. Presentation of case at tumor board 3. Probable right breast needle localization lumpectomy/dual localization with methylene blue, possible oncoplastic tissue transfer 4. We have discussed genetic testing at this time she has declined 5. Clearance with Dr. Radha Pineda 6. Patient with a right sided tooth infection and on antibiotics, will get her tooth pulled Have had a conversation with the patient and her son. Risk and benefits of the procedure discussed with the patient. Risk include but are not limited to bleeding, and infection, reaction to the anesthetic. If the margins were to be positive further tissue acquisition may be necessary. We have discussed sentinel node biopsy and at this time she has declined. 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 History of Present Illness Consult date: 02-20-25 Reason for Consult: invasive ductal cancer right breast; [id number] Requesting physician: Ann-Marie Ku History of present illness: Paty is a 79 year old female seen in consultation for Dr. Ku on 01-04-25 regarding a biopsy proven right breast invasive ductal cancer. She had an ultrasound core biopsy on , lesion about 1 cm by 1 cm. Clip was in the correct location. She has not had a bilateral mammogram. She felt a nodule in her right breast for several months and agreed to have an ultrasound of that side but did not want to have a mammogram. The ultrasound led to an ultrasound- guided core biopsy on the right breast and subsequently a diagnostic mammogram for clip placement was performed on the right side. She has not yet had a left breast mammogram. She has not had any mammograms prior to this for at least 10 years. She has never had any surgery on her breast. She is not complaining of any nipple discharge or skin changes. She has not had any recent trauma or infection in her breast. She has seen Dr. Teixeira and genetic testing has been done. She states that genetic testing would not change her decision to have a lumpectomy. Since her first visit she has had an abscessed tooth pulled. She is not having any more problems with that. Caffeine: 2 cups in am nicotine: none now used to smoke 1 PPD until ; smoked for 15 years chocolate: occasional BCP: in remote past about 1 year hormones: none Family History: Maternal grandmother: Breast cancer Maternal aunt: Breast cancer mother: colon cancer 2 cousins: breast cancer Hormonal history: Menarche:17 , breast fed; yes, age at first : 21 menopause: early 40's Surgical history: tubal ligation gallbladder Medical History; asthma tooth infection Social History: nicotine: none alcohol: occasional; used to drink in the past at the time of a divorce drugs: none Review of Systems - Constitutional Denies fever, Denies weight loss - EENT EENT Comment(s): right jaw swollen/ tooth infection Eyes: denies blurred vision Ears: deny: decreased hearing, tinnitus Ears, nose, mouth and throat: Reports as per HPI - Breasts bilateral: as per HPI - Cardiovascular Denies chest pain, Denies shortness of breath - Respiratory Respiratory Comment(s): asthma occasional - Gastrointestinal Gastrointestinal Comment(s): IBS Reports as per HPI - Genitourinary Genitourinary: Denies dysuria, Denies hematuria Menstruation: Reports postmenopausal - Musculoskeletal Musculoskeleta Comment(s): knee and ankle pain Reports as per HPI - Integumentary Denies rash, Denies unusual bruising - Neurological Neurologic Comment(s): neuropathy in feet MRI brain changes/ told age related Reports headaches, Denies syncope - Psychiatric Reports as per HPI - Endocrine Reports as per HPI, Reports fatigue - Allergic/Immunologic Reports as per HPI Past Medical History Past Medical History: Asthma, Eye Disorder, Thyroid Disorder Additional Past Medical History / Comment(s): glaucoma. digestive issues History of Any Multi-Drug Resistant Organisms: None Reported Past Surgical History: Appendectomy, Cholecystectomy, Tonsillectomy Past Anesthesia/Blood Transfusion Reactions: Motion Sickness Past Psychological History: Anxiety Smoking Status: Former smoker Past Alcohol Use History: Occasional Additional Past Alcohol Use History / Comment(s): smoked for 25 years 1 ppd quit 1994 Past Drug Use History: None Reported Additional Drug Use History / Comment(s): cbd oil - Past Family History Mother Family Medical History: Cancer Additional Family Medical History / Comment(s): colon cancer Medications and Allergies Home Medications Medication Instructions Recorded Confirmed Type Albuterol Inhaler [Ventolin Hfa 1 - 2 puff INHALATION RT-Q6H PRN 10/04/1912/24 History Inhaler] Cholecalciferol [Vitamin D3 (25 10,000 unit PO HS 10/04/19 01/04/25 History Mcg = 1000 Iu)] Latanoprost/Pf [Latanoprost 0.005% 1 drop BOTH EYES HS 10/04/19 01/04/25 History Eye Drop] Levothyroxine Sodium [Synthroid] 125 mcg PO DAILY 10/04/19 01/04/25 History Multivitamins, Thera [Multivitamin 1 tab PO DAILY 10/04/19 01/04/25 History (formulary)] Timolol 0.5% Ophth Soln [Timoptic 1 drop BOTH EYES DAILY 10/26/24 01/04/25 History 0.5% Ophth Soln] Allergies Allergy/AdvReac Type Severity Reaction Status Date / Time acetaminophen [From Tylenol] Allergy Nausea & Unverified 01/04/25 11:52 Vomiting meperidine [From Demerol] Allergy Nausea & Unverified 01/04/25 11:52 Vomiting Penicillins Allergy Unknown Verified 01/04/25 11:52 codeine AdvReac Nausea & Verified 01/04/25 11:52 [From Tylenol-Codeine #3] Vomiting Objective - Vital Signs Vital signs: Intake & Output 02/19/25 02/20/25 02/20/25 18:59 06:59 18:59 Weight 77.111 kg - Constitutional General appearance: Present: cooperative - EENT Eyes: Present: EOMI ENT: Present: hearing grossly normal - Neck Neck: Present: normal ROM - Respiratory Respiratory: bilateral: CTA - Cardiovascular Heart sounds: normal: S1, S2 - Integumentary Integumentary: Present: normal turgor - Musculoskeletal Musculoskeletal: Present: gait normal - Psychiatric Psychiatric: Present: A&O x's 3, appropriate affect, intact judgment & insight - Additional findings Additional findings: Breast Exam: BRA: 42DD Inspection: Bilateral grade 3 ptosis Palpation: Right breast: Multi positional exam fibrocystic changes, at the 12 o'clock position there is a well-healed scar from recent core biopsy, lesion approximately 1 cm in size is palpable Right axilla: No adenopathy of concern Left breast: Multi positional exam fibrocystic changes, no dominant masses or nodules of concern Left axilla: No adenopathy of concern Assessment and Plan Assessment: Impression: Right breast invasive ductal carcinoma Recent history of headaches following with neurology Occasional asthma IBD Plan: Presentation of case at tumor board done on 01-09-25, Left breast mammogram right breast lumpectomy/possible oncoplastic tissue transfer/ dual localization methylene blue and radiotracer clearance Dr. Ku cannot take augmentin/ rxn to this in the past Case presented at tumor board on 01 09 25. She is going to have a left breast mammogram, there is agreement with right breast needle localization lumpectomy. I have called and left a message for the patient. She has an appointment for a preoperative evaluation and surgery is scheduled for February 27. Have had a conversation with the patient and her son. Risk and benefits of the procedure discussed with the patient. Risk include but are not limited to bleeding, and infection, reaction to the anesthetic. If the margins were to be positive further tissue acquisition may be necessary. We have discussed sentinel node biopsy and at this time she has declined. 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 Functional assessment: Passed arm abduction Preoperative education given to patient CC: Dr. Radha Pineda Additional CC's: Ann-Marie Ku
== END ==
LOC: WWCWWP 08:06
PROVIDERS: ATTEND Surgery
DX: C50.911 Malignant neoplasm of unspecified site of right female breast (principal); K58.9 Irritable bowel syndrome, unspecified; J45.909 Unspecified asthma, uncomplicated; Z86.69 Personal history of other diseases of the nervous system and sense organs; Z88.5 Allergy status to narcotic agent; Z88.0 Allergy status to penicillin; Z88.8 Allergy status to other drugs, medicaments and biological substances; Z87.891 Personal history of nicotine dependence

== ENCOUNTER → 2025-02-21 | Outpatient (CLI) | payer MEDICARE ==
--- NOTE | 2025-02-23 11:02 | MM ---
Reason for Exam: Known biopsy proven malignancy. Patient History: Menarche at age 17. First Full-Term at age 20. Postmenopausal. Patient has history of breast feeding. Breast cancer, right, age 79. 12/21/2024, Malignant US biopsy breast VAD RT on the right side. Maternal aunt had breast cancer, age 50. Maternal grandmother had breast cancer, age 55. Maternal cousin had breast cancer, age 40. Prior Study Comparison: 12/21/2024 Right MG diagnostic mammo RT wo CAD, [facility]. Tissue Density: Left: The breasts are heterogeneously dense, which may obscure small masses. Findings: Analyzed By CAD. No new suspicious masses, calcifications or distortions. Overall Assessment: Negative, BI-RAD 1 Management: Screening Mammogram of both breasts in 1 year. Results were given to the patient verbally at the time of exam. Patient should continue monthly self-breast exams. A clinical breast exam by your physician is recommended on an annual basis. This exam should not preclude additional follow-up of suspicious palpable abnormalities. Note on Joan scores and lifetime risk: 1. A Joan score greater than 3% is considered moderate risk. If this is the case, consider specialist referral to assess eligibility for a risk reducing agent. 2. If overall lifetime risk for the development of breast cancer is 20% or higher, the patient may qualify for future screening with alternating mammogram and breast MRI. [facility], , 02/21/2025 8:11 AM. Electronically signed and approved by: Spencer Sotelo DO
== END | disposition home or self-care (01) ==
LOC: RADMAMWWP 07:46
PROVIDERS: ATTEND Surgery
DX: R92.332 Mammographic heterogeneous density, left breast (principal); Z85.3 Personal history of malignant neoplasm of breast; Z78.0 Asymptomatic menopausal state; Z80.3 Family history of malignant neoplasm of breast
CPT/HCPCS: 77061; 77065

== ENCOUNTER 2025-02-27 07:18 | Day surgery (SDC) | payer MEDICARE ==
[2025-02-26 08:44] VITALS: BMI 28.3
[~2025-02-27 07:18] MED LIST changes: -LACTATED RINGERS 1,000 ML IV SCH; -LIDOCAINE 1% (10MG/ML) FOR IV START INTRADERMA PRN; +METHYLENE BLUE 50 MG, DEXTROSE 5% IN WATER 50 ML MISCELLANE ONE
[2025-02-27] MEDS ORDERED: LACTATED RINGERS 1,000 ML IV SCH (07:36)
[2025-02-27] MEDS ORDERED: MIDAZOLAM 2 MG/2 ML VIAL IV PRN (07:36)
[2025-02-27] MEDS ORDERED: fentaNYL (PF) 50 MCG/ML 2 ML AMP IV PRN (07:36)
[2025-02-27] MEDS: IV FLUID CONTINUATION 1,000 ML IV ONE (07:43)
[2025-02-27] MEDS: ACETAMINOPHEN TAB 500 MG TAB PO PRN (08:00)
[2025-02-27] MEDS: ALPRAZolam 0.25 MG TAB PO STA (08:01)
[2025-02-27] MEDS: LIDOCAINE 1% INJ 10MG/ML (20 ML MDV) SQ ONE (08:58)
[2025-02-27] MEDS: SODIUM BICARB 8.4% 50 ML VIAL (1 MEQ/ML) MISCELLANE ONE (08:58)
[2025-02-27] MEDS: METHYLENE BLUE 50 MG/10 ML VIAL MISCELLANE ONE (09:10)
[2025-02-27] MEDS: ONDANSETRON 4 MG/2 ML VIAL IVP ONE (11:07)
[2025-02-27] MEDS: DEXAMETHASONE SOD PHOSPHATE 4 MG/ML 1 ML VIAL IV ONE (11:09)
[2025-02-27] MEDS: HEPARIN SODIUM,PORCINE 5,000 UNIT/ML 1 ML VIAL SQ PRN (11:11)
--- NOTE | 2025-02-27 11:51 | P.NAPBC ---
NAPBC Queries - NAPBC Queries Was patient's case review presented at [facility] tumor board? If no, comment.: Yes Was patient's pathology reviewed at [facility]? If no, comment.: Yes Was breast conservation surgery offered? If no, comment.: Yes Was sentinel node biopsy offered? If no, comment.: Yes (discussed declined) Was diagnosis confirmed by percutaneous core biopsy? If no, comment.: Yes Is patient mastectomy patient?: No Was a preop referral to reconstructive surgeon offered?: No Clinical Stage: stage I right breast IDC [id number]
[2025-02-27] MEDS ORDERED: fentaNYL (PF) 50 MCG/ML 2 ML AMP ONE (12:44)
[2025-02-27] MEDS ORDERED: MIDAZOLAM 2 MG/2 ML VIAL ONE (12:44)
[2025-02-27] MEDS ORDERED: PROPOFOL 10 MG/ML 20 ML VIAL IV ONE (12:44)
[2025-02-27] MEDS ORDERED: LIDOCAINE 1% INJ 10MG/ML (20 ML MDV) ONE (12:44)
[2025-02-27] MEDS ORDERED: ePHEDrine 50 MG/ML 1 ML VIAL ONE (12:44)
[2025-02-27] MEDS ORDERED: GLYCOPYRROLATE 0.2 MG/ML 2 ML VIAL ONE (12:44)
[2025-02-27] MEDS: LIDOCAINE 1%-EPI 1:100,000 20 ML VIAL SQ ONE (12:49)
--- NOTE | 2025-02-27 13:44 | P.BCAON ---
Date of Procedure: 02/27/25 Preoperative Diagnosis: Right breast invasive ductal carcinoma Postoperative Diagnosis: Same Procedure(s) Performed: Needle localization lumpectomy Anesthesia: WILNER Surgeon: Diane Ross Estimated Blood Loss (ml): 10 IV fluids (ml): 400 Pathology: other (Breast tissue) Condition: stable Disposition: same day Indications for Procedure: Biopsy-proven right breast invasive ductal carcinoma Operative Findings: Fibrofatty breast tissue Description of Procedure: The patient was first seen in the radiology department for needle localization of the area of concern was performed. She was then brought to the operative suite. Following induction of anesthesia the right breast was prepped and draped in a sterile fashion. An incision was made and carried down to the shaft of the needle. Surrounding tissue was excised. The specimen was removed and painted for orientation. Radiograph of the specimen reveals the lesion of concern had been removed. The cavity was evaluated for hemostasis. Titanium clips were placed in the cavity. Posterior dissection was performed down to the pectoralis muscle. A new posterior margin was obtained. After reassured that hemostasis was attained Surgicel and powder form was placed. The cavity monteiro were brought together and closed using 3-0 Vicryl suture. The subcutaneous tissue was closed using interrupted 3-0 Vicryl suture followed by a 3-0 Vicryl running subcu tenia suture. A 4-0 Monocryl subcuticular suture was placed. 10 cc of 1% lidocaine were placed in the incision. The patient tolerated the procedure in stable condition. All instrument and sponge counts were correct at the end of the case. A sterile dressing was applied.
[2025-02-27 14:20] VITALS: TEMP 96.9
[2025-02-27 16:22] VITALS: BP 134/84; PULSE 58; RESP 15
--- NOTE | 2025-03-06 15:32 | MM ---
Pathology Description: Approach: CC FA Needle Type: 7 cm Kopan Biopsy-proven carcinoma superior right breast is identified and targeted for needle localization. Coil clip is noted within the lesion. The procedure of needle localization with wire placement and than surgical excision was explained to the patient. Benefits, alternatives, and risks were discussed. An informed consent was then obtained. The shortest pathway for procedure was chosen. Shortest pathway was a superior approach. The overlying skin was prepped and draped in usual sterile fashion. Lidocaine buffered with bicarbonate was used as anesthetic into the skin and subcutaneous tissue up to the level of area of concern. A 5 cm Kopan's needle was used. It was placed via a superior approach under mammographic guidance. Subsequent 90 degrees mammogram was obtained and the needle was repositioned to have the tip centered within the mass. Approximately 1 mL of dilute methylene blue dye was injected into the mass. The needle was subsequently advanced. Images show the needle to be in satisfactory position relative to the targeted area. At this point, wire was placed and the needle was withdrawn. The wire was fixed to patient's skin. Images were marked for surgeon. The patient tolerated the procedure well without any immediate complication. The patient was kept in the radiology department for short stay after the procedure and then taken to surgery for surgical excision. Targeted mass, clip, and wire are identified in specimen mammogram. The patient was kept in hospital for short stay after the procedure and then discharged home in stable condition. IMPRESSION: Successful, uncomplicated needle localization with wire placement and surgical excision of biopsy-proven right breast cancer; full pathology results to follow. [facility], , 02/27/2025 3:49 PM. Pathology Results: Result: Malignant, Invasive ductal carcinoma. Pathology and radiology were reviewed. Findings are concordant. A. 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 2 mm area of invasive carcinoma present at superior margin. All other margins negative for invasive carcinoma. B. RIGHT BREAST TISSUE, NEW POSTERIOR MARGIN, EXCISION: Benign breast tissue and new superior margin, negative for in situ or invasive carcinoma. Overall Assessment: Malignant Management: Diagnostic Mammogram of the right breast in 6 months. Electronically signed and approved by: Jose De Leon M.D. Radiologist
== END 2025-02-27 16:20 | disposition home or self-care (01) ==
LOC: OR 07:18
PROVIDERS: ATTEND Surgery
DX: C50.811 Malignant neoplasm of overlapping sites of right female breast (principal); J45.909 Unspecified asthma, uncomplicated; E07.9 Disorder of thyroid, unspecified; F41.9 Anxiety disorder, unspecified; E78.5 Hyperlipidemia, unspecified; H40.9 Unspecified glaucoma; Z88.0 Allergy status to penicillin; Z88.5 Allergy status to narcotic agent; Z88.6 Allergy status to analgesic agent; Z79.51 Long term (current) use of inhaled steroids; Z79.890 Hormone replacement therapy; Z79.899 Other long term (current) drug therapy
CPT/HCPCS: 76098; 19301; 19281; C1819; J2250; J1644; J1100; J0690; J2405; J2003; J3010; J2704; Q9968; J1596; 88305; 88307